=== PATIENT | male | born 1940 | race Caucasian/White ===

== ENCOUNTER 2020-12-30 08:10 | Day surgery (SDC) | payer BC, MEDICARE, OTHER ==
[2020-12-28 16:09] VITALS: BMI 25.7
--- NOTE | 2020-12-30 06:43 | P.GSHP ---
History of Present Illness H&P Date: 12/30/20 Chief Complaint: Prostate cancer The patient is an 80-year-old white male with recently diagnosed prostate cancer. His PSA level is 16.44. He has elected to be treated with a combination of IMRT and androgen deprivation therapy. He now comes for SpaceOAR implant to reduce the risk of rectal toxicity. He received a Lupron injection on 12/23/2020. - EENT Ears: bilateral: decreased hearing - Cardiovascular Cardiovascular: Reports high blood pressure - Psychiatric Psychiatric: Reports anxiety Past Medical History Past Medical History: Cancer, Hyperlipidemia, Hypertension Additional Past Medical History / Comment(s): PROSTATE CANCER. HX BRAIN ANEURSYM History of Any Multi-Drug Resistant Organisms: None Reported Past Surgical History: Cardiac Valve Replacement, Coronary Bypass/CABG, Heart Catheterization, Pacemaker Additional Past Surgical History / Comment(s): BRAIN SX FOR ANEURSYM X 2 Past Anesthesia/Blood Transfusion Reactions: No Reported Reaction Type of Cardiac Device: Biventricular Pacemaker Device Placement Date:: 2018 Smoking Status: Never smoker - Past Family History Brother(s) Family Medical History: Cancer Additional Family Medical History / Comment(s): PROSTATE Medications and Allergies Home Medications Medication Instructions Recorded Confirmed Type Aspirin 81 mg PO DAILY 12/28/20 12/28/20 History Atorvastatin [Lipitor] 20 mg PO DAILY 12/28/20 12/28/20 History Carvedilol [Coreg] 25 mg PO DAILY 12/28/20 12/28/20 History Clopidogrel [Plavix] 75 mg PO DAILY 12/28/20 12/28/20 History Isosorbide Mononitrate [Isosorbide 30 mg PO DAILY 12/28/20 12/28/20 History Mononitrate ER] Magnesium Oxide [Magox 400] 400 mg PO DAILY 12/28/20 12/28/20 History Multivit-Min/Folic/Vit K/Lycop 1 each PO DAILY 12/28/20 12/28/20 History [Men's Multivitamin Tablet] lisinopriL 20 mg PO BID 12/28/20 12/28/20 History Allergies Allergy/AdvReac Type Severity Reaction Status Date / Time No Known Allergies Allergy Verified 12/28/20 16:01 Surgical - Exam - General well developed, well nourished, no distress - Respiratory normal respiratory effort - Abdomen Abdomen: soft, non tender, no guarding, no rigid, no rebound - Genitourinary normal penis with no external lesions, testicles non-tender, other (Prostate mildly enlarged left-sided firmness) - Rectum Rectum: normal sphincter tone, no masses - Psychiatric oriented to time, oriented to person, oriented to place, speech is normal, memory intact Assessment and Plan (1) Malignant neoplasm of prostate Status: Acute Code(s): C61 - MALIGNANT NEOPLASM OF PROSTATE SNOMED Code(s): 746318794 Plan: The SpaceOar implant has been reviewed in detail with the patient. He understands that the rationale for this is to create separation between the prostate and rectum, thus reducing the risk of radiation proctitis. The material begins to breakdown 12-13 weeks following implant, and is reabsorbed by the body. Risks include anesthesia, bleeding, infection, and perineal discomfort. He understands that if the rectal wall is perforated the procedure will need to be aborted.
[~2020-12-30 08:10] MED LIST: LACTATED RINGERS 1,000 ML IV SCH
[2020-12-30 08:45] VITALS: TEMP 97.4
[2020-12-30] MEDS ORDERED: ONDANSETRON 4 MG/2 ML VIAL ONE (08:54)
[2020-12-30] MEDS ORDERED: ONDANSETRON 4 MG/2 ML VIAL IVP ONE (08:56)
[2020-12-30] MEDS ORDERED: DEXAMETHASONE SOD PHOSPHATE 4 MG/ML 1 ML VIAL IVP ONE (08:56)
[2020-12-30] MEDS ORDERED: fentaNYL (PF) 50 MCG/ML 2 ML AMP ONE (09:32)
[2020-12-30] MEDS ORDERED: MIDAZOLAM 2 MG/2 ML VIAL ONE (09:32)
[2020-12-30] MEDS ORDERED: LIDOCAINE 2% (PF) 20 MG/ML 5 ML VIAL SQ ONE (09:55)
[2020-12-30 10:17] VITALS: RESP 18
--- NOTE | 2020-12-30 10:31 | P.OP ---
Date of Procedure: 12/30/20 Preoperative Diagnosis: Prostate cancer Postoperative Diagnosis: Prostate cancer Procedure(s) Performed: SpaceOAR Implant Anesthesia: MAC Surgeon: Amish Coronel Estimated Blood Loss (ml): 10 IV fluids (ml): 100 Pathology: none sent Condition: stable Disposition: PACU Indications for Procedure: The patient is an 80-year-old white male with recently diagnosed prostate cancer. His PSA level is 16.44. He has elected to be treated with a combination of IMRT and androgen deprivation therapy. He now comes for SpaceOAR implant to reduce the risk of rectal toxicity. He received a Lupron injection on 12/23/2020. Operative Findings: 11 mm separation created between prostate and rectum. Description of Procedure: The patient was taken to the operating room and placed in the dorsolithotomy position, with his legs supported in Mauricio stirrups. The external genitalia was prepped and draped sterilely. The Bruel and Kjaer transrectal ultrasound probe was placed intrarectally. The prostate was imaged. The probe was then placed within the stabilizing stand. A spinal needle was advanced under ultrasonic guidance to the level of the urogenital diaphragm, and lidocaine was used to infiltrate the tissues as the needle was withdrawn. Next, the SpaceOAR needle was passed through the midline of the perineum, 1-2 cm anterior to the anal opening. The needle was slowly advanced under ultrasonic guidance until the needle tip was located within the fat plane between the prostate and rectum, at the level of the mid prostate gland. The needle was confirmed to be midline on the axial imaging. A small amount of normal saline was injected for hydrodissection. Next, the SpaceOAR components were mixed and loaded into the Y connector per protocol. The Y connector was then connected to the needle, and the components were injected slowly over a course of approximately 12 seconds. A total of 10 ml was injected. Significant distance was created between the prostate and rectum, as desired. It should be noted that at no point was there any concern of rectal perforation. The needle was withdrawn, as well as the transrectal ultrasound probe, and the procedure was terminated. The patient tolerated the procedure well and was taken to the recovery room in stable condition.
[2020-12-30 10:46] VITALS: BP 151/91; PULSE 70
== END 2020-12-30 11:10 | disposition home or self-care (01) ==
LOC: OR 08:10
PROVIDERS: ATTEND Urology
DX: C61 Malignant neoplasm of prostate (principal); E78.5 Hyperlipidemia, unspecified; I10 Essential (primary) hypertension; Z86.79 Personal history of other diseases of the circulatory system; Z95.2 Presence of prosthetic heart valve; Z95.1 Presence of aortocoronary bypass graft; Z95.0 Presence of cardiac pacemaker; Z98.890 Other specified postprocedural states; Z97.2 Presence of dental prosthetic device (complete) (partial); Z80.42 Family history of malignant neoplasm of prostate; Z79.02 Long term (current) use of antithrombotics/antiplatelets; Z79.82 Long term (current) use of aspirin; Z79.899 Other long term (current) drug therapy
CPT/HCPCS: 55874; C1889; J2250; J1100; J0690; J2405; J3010; J2001